=== PATIENT | male | born 1955 | race Caucasian/White ===

== ENCOUNTER 2023-07-19 14:20 | Outpatient (RCR) | payer MEDICARE, OTHER, SELFPAY | END 2023-08-06 08:31 | disposition home or self-care (01) | LOC: RPT 14:20 | PROVIDERS: ATTENDING PHYSICIAN Orthopaedic Surgery | DX: M25.562 Pain in left knee (principal) | CPT/HCPCS: 97110; 97140; 97530 ==

== ENCOUNTER → 2025-05-15 11:08 | Outpatient (REF) | payer MEDICARE, OTHER, SELFPAY | LOC: PAVMRI 11:08 | PROVIDERS: ATTENDING PHYSICIAN Orthopaedic Surgery; FAMILY PHYSICIAN Family Medicine | DX: M65.962 Unspecified synovitis and tenosynovitis, left lower leg (principal); M25.562 Pain in left knee | CPT/HCPCS: 73721 ==

== ENCOUNTER 2025-06-10 11:03 | Outpatient (RCR) | payer MEDICARE, OTHER, SELFPAY | END 2025-06-11 23:59 | disposition home or self-care (01) | LOC: RPT 11:03 | PROVIDERS: ATTENDING PHYSICIAN Orthopaedic Surgery; FAMILY PHYSICIAN Family Medicine | DX: S83.242D Other tear of medial meniscus, current injury, left knee, subsequent encounter (principal); Z73.6 Limitation of activities due to disability; M25.562 Pain in left knee; R26.2 Difficulty in walking, not elsewhere classified; M62.81 Muscle weakness (generalized); R26.89 Other abnormalities of gait and mobility; X58.XXXD Exposure to other specified factors, subsequent encounter | CPT/HCPCS: 97110; 97162; 97530 ==

== ENCOUNTER 2025-07-07 07:21 | Outpatient (RCR) | payer MEDICARE, OTHER, SELFPAY | END 2025-07-07 23:59 | disposition home or self-care (01) | LOC: RPT 07:21 | PROVIDERS: ATTENDING PHYSICIAN Orthopaedic Surgery; FAMILY PHYSICIAN Family Medicine | DX: S83.242D Other tear of medial meniscus, current injury, left knee, subsequent encounter (principal); Z73.6 Limitation of activities due to disability; M25.562 Pain in left knee; R26.2 Difficulty in walking, not elsewhere classified; M62.81 Muscle weakness (generalized); R26.89 Other abnormalities of gait and mobility; X58.XXXD Exposure to other specified factors, subsequent encounter | CPT/HCPCS: 97110; 97530 ==

== ENCOUNTER 2025-07-14 13:39 | Outpatient (RCR) | payer MEDICARE, OTHER, SELFPAY | END 2025-07-23 23:59 | disposition home or self-care (01) | LOC: RPT 13:39 | PROVIDERS: ATTENDING PHYSICIAN Orthopaedic Surgery; FAMILY PHYSICIAN Family Medicine | DX: S83.242D Other tear of medial meniscus, current injury, left knee, subsequent encounter (principal); Z73.6 Limitation of activities due to disability; M25.562 Pain in left knee; R26.2 Difficulty in walking, not elsewhere classified; M62.81 Muscle weakness (generalized); R26.89 Other abnormalities of gait and mobility; X58.XXXD Exposure to other specified factors, subsequent encounter | CPT/HCPCS: 97530 ==

== ENCOUNTER 2025-07-18 15:14 | Inpatient (IN) | payer MEDICARE, OTHER, SELFPAY ==
[2025-07-18 12:45] VITALS: BP 146/77
[2025-07-18 13:11] VITALS: BMI 29.2
[2025-07-18 13:43] LABS: Hematocrit 38.9 % (39.0-52.0); Hemoglobin 13.4 g/dL (13.0-18.0); Mean Corp Hgb Conc. 34.4 g/dL (33.0-37.0); Mean Corpuscular Volume 85.9 fL (80.0-94.0); Nucleated Red Blood Cells % 0 % (-); Platelet Count 205 10^3/uL (130-400); Red Cell Dist. Width 12.6 % (11.5-14.5)
[2025-07-18 13:52] LABS: ALT (SGPT) 23 U/L (0-50); AST (SGOT) 19 U/L (17-59); Albumin 4.4 g/dl (3.5-5.0); Alkaline Phosphatase 100 U/L (38-126); Blood Urea Nitrogen 18 mg/dl (9-20); Calcium 9.0 mg/dl (8.4-10.2); Carbon Dioxide 26 mmol/L (22-30); Chloride 101 mmol/L (98-107); Estimated Creatinine Clearance 86 ml/min; Glucose 88 mg/dl (70-99); Potassium 4.5 mmol/L (3.5-5.1); Sodium 132 mmol/L (135-145); Total Protein 7.4 g/dl (6.3-8.2); eGFR > 60.00
--- NOTE | 2025-07-18 14:09 | ED.GENMED ---
History of Present Illness
<Guillermina Enriquez PA-C - Last Filed: 07/21/25 06:26>
General
Chief Complaint: Skin Surface Trauma
Source: patient
Exam Limitations: none
Time Seen by Provider: 07/18/25 13:31
Nursing documentation reviewed up to this point in time: agreed with
History of Present Illness
History of Present Illness:
see MDM
Phy Exam
<Guillermina Enriquez PA-C - Last Filed: 07/21/25 06:26>
Physical Exam
Physical Exam:
see MDM
Course
<Guillermina Enriquez PA-C - Last Filed: 07/21/25 06:26>
Orders/Labs/Results
Orders:
Orders
07/18/25 Lunch
Cholesterol Lowering
At Your Request: Full Participation
Does patient need a safe tray?: No
Cholesterol Lowering: Sodium, 2 Gram
07/18/25 12:52
Wound Culture [Wound/Abscess/Other Culture] Urgent
MIRANDA Source: Finger
Specimen Description: Right
Date Specimen was Collected: 07/18/25
Time Specimen was Collected: 12:49
07/18/25 13:17
CBC/With Diff [Complete Blood Count/With Diff] Urgent
Comprehensive Metabolic Panel Urgent
07/18/25 13:45
Thumb/Finger 2 View Rt [CR Finger(s)/thumb Min 2 Vw Rt] Urgent
Comment:
Reason For Exam: infected thumb ? fb
07/18/25 13:46
Ampicillin/Sulbactam 3 G [Unasyn] 3 gm 0.9% Sodium Chloride 100 ml [Nss] 100 ml IV NOW
07/18/25 14:00
Ampicillin/Sulbactam 3 G [Unasyn] 3 gm 0.9% Sodium Chloride 100 ml [Nss] 100 ml IV NOW
07/18/25 14:56
Admit/Transfer Patient As Directed
Co-Sign Provider:
Level of Care: Inpatient admission
Assign to:: Medical/Surgical
Physician / Group: ricarday
Diagnosis: Paronychia with abscess and drainage of R Thumb Associated Lymphangitis
Reason for Hospitalization: Paronychia with abscess and drainage of R Thumb
Associated Lymphangitis with cellulitis.
Expected length of stay greater than two midnights?: Yes
ELOS- Estimated Length of Stay in days: 2
I certify the patient meets the requirements for IP care: Yes
07/18/25 14:59
Code Status As Directed
Resuscitation Status: Full Code
07/18/25 16:39
Acetaminophen [Tylenol] 650 mg PO Q6HPRN PRN mild pain
Bisacodyl [Dulcolax] 10 mg RECTAL [id number] PRN
Docusate W/Senna [Senokot-S] 1 tablet PO BIDPRN PRN
Ibuprofen [Motrin] 400 mg PO Q6HPRN PRN
Polyethylene Glycol Powder [Miralax] 17 grams PO DAILYPRN PRN
07/18/25 16:39
Activity As Directed
Activity Level: With Assistance
Pneumatic Compression Sleeves As Directed
Type: Knee high
Vital Signs As Directed
Frequency: Per unit guidelines
DX Deep Vein Thrombosis Video Routine
07/18/25 20:00
Ampicillin/Sulbactam 1.5 G [Unasyn] 1.5 gm 0.9% Sodium Chloride [Nss] 50 ml IV Q6H
07/19/25 05:14
Basic Metabolic Panel IN AM
Complete Blood Count/No Diff IN AM
07/19/25 08:00
Amlodipine [Norvasc] 5 mg PO DAILY
Bupropion(24Hr)Extended Releas [WELLBUTRIN XL (24 hour extended release)] 300 mg PO DAILY
Duloxetine Delayed Release [Cymbalta Delayed Release] 90 mg PO DAILY
Levothyroxine [Synthroid] 150 mcg PO DAILY
Rosuvastatin Calcium [Crestor] 20 mg PO DAILY
methylphenidate HCl [Concerta] 54 mg PO DAILY
Abnormal Lab Results
07/18/25
13:17
RBC 4.53 L 10^6/uL
(4.70-6.10)
Hct 38.9 L %
(39.0-52.0)
Absolute Lymphs (auto) 1.0 L 10^3/uL
(1.2-3.4)
Absolute Monos (auto) 0.7 H 10^3/uL
(0.1-0.6)
Lymphocytes % 14.7 L %
(20.5-51.1)
Monocytes % 9.5 H %
(1.7-9.3)
Sodium 132 L mmol/L
(135-145)
07/18/25 13:17
07/18/25 13:17
Vital Signs
Initial and Last Documented VS:
Initial Vital Signs
Temp Pulse Resp BP Pulse Ox
36.6 C 85 17 146/77 99
07/18/25 12:45 07/18/25 12:45 07/18/25 12:45 07/18/25 12:45 07/18/25 12:45
Last Documented Vital Signs
Temp Pulse Resp BP Pulse Ox
36.3 C 79 16 140/79 100
07/20/25 11:19 07/20/25 11:19 07/20/25 11:19 07/20/25 11:19 07/20/25 11:19
Stephanielt;Deirdre Smart DO - Last Filed: 07/18/25 14:18>
Orders/Labs/Results
Orders:
Orders
07/18/25 Lunch
Cholesterol Lowering
At Your Request: Full Participation
Does patient need a safe tray?: No
Cholesterol Lowering: Sodium, 2 Gram
07/18/25 12:52
Wound Culture [Wound/Abscess/Other Culture] Urgent
MIRANDA Source: Finger
Specimen Description: Right
Date Specimen was Collected: 07/18/25
Time Specimen was Collected: 12:49
07/18/25 13:17
CBC/With Diff [Complete Blood Count/With Diff] Urgent
Comprehensive Metabolic Panel Urgent
07/18/25 13:45
Thumb/Finger 2 View Rt [CR Finger(s)/thumb Min 2 Vw Rt] Urgent
Comment:
Reason For Exam: infected thumb ? fb
07/18/25 13:46
Ampicillin/Sulbactam 3 G [Unasyn] 3 gm 0.9% Sodium Chloride 100 ml [Nss] 100 ml IV NOW
07/18/25 14:00
Ampicillin/Sulbactam 3 G [Unasyn] 3 gm 0.9% Sodium Chloride 100 ml [Nss] 100 ml IV NOW
07/18/25 14:56
Admit/Transfer Patient As Directed
Co-Sign Provider:
Level of Care: Inpatient admission
Assign to:: Medical/Surgical
Physician / Group: valente
Diagnosis: Paronychia with abscess and drainage of R Thumb Associated Lymphangitis
Reason for Hospitalization: Paronychia with abscess and drainage of R Thumb
Associated Lymphangitis with cellulitis.
Expected length of stay greater than two midnights?: Yes
ELOS- Estimated Length of Stay in days: 2
I certify the patient meets the requirements for IP care: Yes
07/18/25 14:59
Code Status As Directed
Resuscitation Status: Full Code
07/18/25 16:39
Acetaminophen [Tylenol] 650 mg PO Q6HPRN PRN mild pain
Bisacodyl [Dulcolax] 10 mg RECTAL [id number] PRN
Docusate W/Senna [Senokot-S] 1 tablet PO BIDPRN PRN
Ibuprofen [Motrin] 400 mg PO Q6HPRN PRN
Polyethylene Glycol Powder [Miralax] 17 grams PO DAILYPRN PRN
07/18/25 16:39
Activity As Directed
Activity Level: With Assistance
Pneumatic Compression Sleeves As Directed
Type: Knee high
Vital Signs As Directed
Frequency: Per unit guidelines
DX Deep Vein Thrombosis Video Routine
07/18/25 20:00
Ampicillin/Sulbactam 1.5 G [Unasyn] 1.5 gm 0.9% Sodium Chloride [Nss] 50 ml IV Q6H
07/19/25 05:14
Basic Metabolic Panel IN AM
Complete Blood Count/No Diff IN AM
07/19/25 08:00
Amlodipine [Norvasc] 5 mg PO DAILY
Bupropion(24Hr)Extended Releas [WELLBUTRIN XL (24 hour extended release)] 300 mg PO DAILY
Duloxetine Delayed Release [Cymbalta Delayed Release] 90 mg PO DAILY
Levothyroxine [Synthroid] 150 mcg PO DAILY
Rosuvastatin Calcium [Crestor] 20 mg PO DAILY
methylphenidate HCl [Concerta] 54 mg PO DAILY
Abnormal Lab Results
07/18/25
13:17
RBC 4.53 L 10^6/uL
(4.70-6.10)
Hct 38.9 L %
(39.0-52.0)
Absolute Lymphs (auto) 1.0 L 10^3/uL
(1.2-3.4)
Absolute Monos (auto) 0.7 H 10^3/uL
(0.1-0.6)
Lymphocytes % 14.7 L %
(20.5-51.1)
Monocytes % 9.5 H %
(1.7-9.3)
Sodium 132 L mmol/L
(135-145)
07/18/25 13:17
07/18/25 13:17
Vital Signs
Initial and Last Documented VS:
Initial Vital Signs
Temp Pulse Resp BP Pulse Ox
36.6 C 85 17 146/77 99
07/18/25 12:45 07/18/25 12:45 07/18/25 12:45 07/18/25 12:45 07/18/25 12:45
Last Documented Vital Signs
Temp Pulse Resp BP Pulse Ox
36.3 C 79 16 140/79 100
07/20/25 11:19 07/20/25 11:19 07/20/25 11:19 07/20/25 11:19 07/20/25 11:19
Procedures
<Guillermina Enriquez PA-C - Last Filed: 07/21/25 06:26>
Incision/Drainage/Joint Aspiration
Right Thumb:
Anethesia: 1% Lidocaine and other (digital block)
Preparation: cleaned with alcohol wipe
Type of procedure: incise
Nature of site: other (paronychia)
Description of abscess: less than 3cm
How much fluid was obtained?: scant amount
Fluid description: purulent and bloody
Treatment: left open for drainage
<Guillermina Enriquez PA-C - Last Filed: 07/21/25 06:26>
MDM/Problems Addressed
Differential Diagnosis Includes:
see MDM
MDM/Problems Addressed:
Note:
CHIEF COMPLAINT(S)
Thumb discoloration and sensitivity with extension to the arm.
HISTORY OF PRESENT ILLNESS
The patient is a 70 y/o M R hand dominant who presented with a complaint of his thumb turning dark/discolored, increasing sensitivity, and swelling for the past 5 days. on 07/26 he had worsening pain/swelling and some redness, the conditions
prompted a visit to his family doctor, who prescribed a round of Amoxicillin. The prescription began yesterday, consisting of two doses taken yesterday and one today.yesterday there was some redness streaking up to the AC region. today now it
extends all the way up to the axilla.
The patient reports that the thumb started draining fluid after striking it against a crate this morning, which was painful. There was no reported fever. He does not have a history of diabetes.
no cp
PAST MEDICAL AND SURGICAL HISTORY
No past surgical history mentioned.
SOCIAL DETERMINANTS AFFECTING HEALTH
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
REVIEW OF SYSTEMS
- Dermatological: Thumb discoloration, swelling, and drainage.
- Systemic: No fevers or chills reported.
PHYSICAL EXAM
GENERAL: Alert , in no apparent distress
EYE: pupils equal and reactive
NECK: Supple
ENT: o/p clr, mmm.
CARDIAC: Regular rate and rhythm .
LUNGS: Clear breath sounds bilaterally, no acute respiratory distress, no wheezes/rales/rhonchi
ABDOMEN: Soft, without focal tenderness, no r/g, no cvat, normal bowel sounds
NEUROLOGICAL: Alert and oriented, no focal neuro deficits
SKIN: Warm and dry, fluctuance along the nail fold of the R thumb with some purplish/dusky appearance to jeff fingertip and under the nail
there is a soft fat pad of the fingertip
he has erythema streaking from the thumb up to the L axilla region
MUSCULOSKELETAL: thumb swelling distal phalanx; fat pad is soft
able to flex and extend
PSYCH: Normal and appropriate interaction.
- Nursing notes reviewed and vital signs reviewed.
PROBLEM LIST
Acute:
1. Lymphangitis with cellulitis.
2. Paronychia with drainage.
PLAN
- Initiate intravenous antibiotics for lymphangitis and cellulitis.
- Patient advised about the necessity of possible overnight hospital stay for treatment and monitoring.
DIFFERENTIAL DIAGNOSIS
The Differential Diagnosis includes, in no particular order and is not limited to:
1. Lymphangitis
2. Cellulitis
3. Paronychia
4. Infection secondary to trauma
5. Infective endocarditis
6. Septicemia
7. Deep vein thrombosis
8. Necrotizing fasciitis
9. Foreign body reaction
10. Erythema nodosum
70-year-old male [id number] says that he cut his right thumb he believes or he is not really sure, maybe he bit his fingernail and he started with some discoloration along the nailbed a few days ago. It started increasing and becoming more
swollen and tender. He went to his doctor and started on amoxicillin 2 days ago. He now has a streak of redness it has streak up past his AC region, he says it was in the AC region yesterday. He did not realize it is in the axilla today he has
not had any systemic symptoms. He is not a diabetic. On exam the patient has a fluctuant paronychia, it started draining in the center of it not along the nail fold, he has no obvious felon, but the digit is mildly swollen. He has erythematous
lymphatic spread of his arm to his axilla. Given the rapid spread of this I will admit him for IV antibiotics. I did drain the paronychia by lifting the fold off of the nail plate and it did express some purulence
<Guillermina Enriquez PA-C - Last Filed: 07/21/25 06:26>
*Pulse Oximetry
SaO2: 99
Oxygen Mode of Delivery: Room air
Patient hypoxic: no (100)
*Critical Care Note
Total Time (30-74mins, 75-104mins- exclusive of procedures): Not Applicable
ED Attending Note
<Guillermina Enriquez PA-C - Last Filed: 07/21/25 06:26>
-
Portions of this chart may have been created with voice recognition software.� Occasional wrong word or��sound alike� substitutions may have occurred due to the inherent limitations of voice recognition software.
<Deirdre Smart DO - Last Filed: 07/18/25 14:18>
ED Attending Note
Patient seen and examined by attending physician: Yes
I performed the substantive portion of visit, reviewed & personally made and approve the management plan that is documented in note by myself or MASHA.: Yes
I performed a history and physical exam of patient and discussed management with resident, I reviewed resident's note and agree with documented findings and plan of care.: Yes
ED Attending Note:
70-year-old male presents to the ER for further treatment of infection to his right hand now streaking up to his axilla. Patient was started on amoxicillin at urgent care and has taken 3 doses without any improvement, and in fact worsening
erythema. 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 He denies any prior history of retained foreign body to this digit. Vital signs reviewed, patient is awake, alert, appears in no acute distress, right thumb with
fluctuance and violaceous discoloration present along the proximal eponychial fold around 2 the lateral aspect of the digit, this area of purulence seems to extend across the interphalangeal joint, he has induration and erythema extending from his
thumb up to his axilla (extending beyond lines which had been drawn by urgent care), GCS is 15. I discussed with patient and present at bedside need for drainage of paronychia. Will also obtain x-ray to rule out foreign body. I discussed
with him benefit of admission for IV antibiotics given failure to improve on oral medications. He expressed understanding of plan and agrees.
Discharge Plan
Departure
Patient Disposition: Admit
Date of Disposition: 07/18/25
Time of Disposition: 14:17
Admit to: Med/Surg
Presentation/result/management discussed w/ accepting MD/DO: Hospitalist
Condition: Fair
Covid-19: Not Applicable
Discharge Problem:
Lymphangitis, Paronychia
Interventions
Interventions:
*Risk Screen - Suicide Last Done: 07/18/25 12:40
*General Assessment Last Done: 07/18/25 12:46
*Neglect/Abuse Screening Last Done: 07/18/25 12:46
*ED COVID-19 Vaccine History Last Done: 07/18/25 12:46
*ED Influenza Vaccine History Last Done: 07/18/25 12:46
[facility] Risk Assessment Tool Last Done: 07/18/25 13:05
*Nursing Disposition Last Done: 07/18/25 17:00
ED-Skin Assessment Last Done: 07/18/25 13:13
Discharge Date and Time
Discharge Date/Time: 07/18/25 17:09
[2025-07-18] MEDS: UNASYN IV ×2 (14:17→20:26)
[2025-07-18 14:20] VITALS: BP 138/83
--- NOTE | 2025-07-18 14:43 | HPS.HSE ---
Family Physician
-
Family Physician: Chelly Bejarano
Chief Complaint
-
R thumb infection
History of Present Illness
HPI
70M Non diabetic , R hand dominant seen at ER;
- eval for R thumb/hand infection now streaking up to his axilla
- reports R thumb dark/discolored, increasing sensitivity, and swelling for the past 5 days
- Patient was started on amoxicillin at urgent care and has taken 3 doses without any improvement, and in fact worsening erythema.
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
- denies any prior history of retained foreign body to this digit.
Medical History
Past Medical History
Past Medical History: Reports HTN, Hypercholesterolemia and Psychiatric (anxiety )
Past Surgical History: Reports None
Social History
Tobacco: Non-smoker
Family History
Family History: Not pertinent
Allergies / Home Medications
Allergies reflects when Allergies were last updated in [facility].
Home Medications with original date entered in [facility]
Allergy/Medication List:
Allergies
Allergy/AdvReac Type Severity Reaction Status Date / Time
No Known Allergies Allergy Verified 07/18/25 12:46
Home Medications
acetaminophen 325 mg tablet (Tylenol) 650 mg PO Q6HPRN PRN mild pain 07/18/25
amlodipine 5 mg-valsartan 160 mg tablet 1 tab PO DAILY Heart Disease/Condition 07/18/25
amoxicillin 875 mg-potassium clavulanate 125 mg tablet 1 tab PO BID Infection 07/18/25
bupropion HCl 300 mg 24 hr tablet, extended release (Wellbutrin XL) 300 mg PO DAILY Mental Health/Anxiety 07/18/25
duloxetine 30 mg capsule,delayed release 90 mg PO DAILY Neurological Condition 07/18/25
levothyroxine 150 mcg tablet (Synthroid) 150 mcg PO DAILY Thyroid 07/18/25
methylphenidate HCl 54 mg tablet,extended release 24 hr (Concerta) 54 mg PO DAILY Mental Health/Anxiety 07/18/25
rosuvastatin 20 mg tablet (Crestor) 20 mg PO DAILY High Cholesterol 07/18/25
Review of Systems
-
Constitutional: Reports No Symptoms
EENT: Reports No Symptoms
Respiratory: Reports No Symptoms
Cardiac: Reports No Symptoms
Abdomen/GI: Reports No Symptoms
: Reports No Symptoms
Musculoskeletal: Reports See HPI
Skin: Reports See HPI
Neurological: Reports No Symptoms
Endocrine: Reports No Symptoms
Hematologic/Lymphatic: Reports No Symptoms
Psych: Reports No Symptoms
Physical Exam
Vital Signs
Vital Signs
Temp Pulse Resp BP Pulse Ox
97.9 F 80 17 138/83 98
07/18/25 12:45 07/18/25 14:22 07/18/25 12:45 07/18/25 14:20 07/18/25 14:21
Physical Exam
General: Other (see below )
Laboratory Results
-
07/18/25 13:17
07/18/25 13:17
Laboratory Results
Total Bilirubin 0.8 mg/dl (0.2-1.3) 07/18/25 13:17
AST 19 U/L (17-59) 07/18/25 13:17
ALT 23 U/L (0-50) 07/18/25 13:17
Alkaline Phosphatase 100 U/L (38-126) 07/18/25 13:17
Data Reviewed
-
Lab Data: Labs Reviewed by me
Impression/Plan
-
Vital Signs
Temp Pulse Resp BP Pulse Ox
97.9 F 80 17 138/83 98
07/18/25 12:45 07/18/25 14:22 07/18/25 12:45 07/18/25 14:20 07/18/25 14:21
PE
Gen: Non toxic, NAD
HEENT: anicteric
Neck: supple
Lungs: CTA
Cor:RRR
TAKE AWAY ATTENDANT awake, alert,
R THUMB:
- fluctuance and purplish discoloration along the proximal eponychial fold around 2 distal digit
- area of purulence seems to extend across the interphalangeal joint
- induration and erythema extending from his thumb up to his axilla (extending beyond lines which had been drawn by urgent care),
Skin:erythema streaking from the thumb up to the L axilla region
Psych: Nl mod and affect
Abnormal Lab
07/18/25
13:17
RBC 4.53 L
Hct 38.9 L
Absolute Lymphs (auto) 1.0 L
Absolute Monos (auto) 0.7 H
Lymphocytes % 14.7 L
Monocytes % 9.5 H
Sodium 132 L
NO PRIOR hospitalist admission:
ASSESSMENT & PLAN
Paronychia with drainage of R Thumb
Associated Lymphangitis with cellulitis.
- I & D at ER - FU pus Cx
- c/w IV Unasyn
- Tylenol PRN
pHTN
- amlodipine 5 mg-valsartan 160 mg daily
Hypothyroid
- on JOURNEYMAN MACHINIST LT4
HLD
- on JOURNEYMAN MACHINIST rosuvastatin 20 mg daily
Anxiety/depression
- on JOURNEYMAN MACHINIST bupropion HCl 300 mg 24 hr daily and duloxetine 90 mg PO DAILY
DVT Px: SCD
Code: Full
OBS MS
--- NOTE | 2025-07-18 15:29 | CM ---
Chart reviewed. Spoke with patient at ED bedside
Lives in 2 [address] with
Independent with ADLs and ambulation
Currently attending outpt PT for left knee
no DME
PCP Chelly Bejarano
[facility]
no hx of VN nor SNF
DCP is to return home
CM will continue to follow up for any dcp needs
[2025-07-18 17:00] VITALS: BMI 28.8
[2025-07-18 17:05] VITALS: BP 138/80
[2025-07-18 19:00] VITALS: BP 134/82
[2025-07-18 20:00] VITALS: BMI 28.8
[2025-07-18 23:00] VITALS: BP 131/72
[2025-07-19] MEDS: UNASYN IV ×2 (01:46→07:32)
[2025-07-19 05:51] LABS: Hematocrit 37.1 % (39.0-52.0); Hemoglobin 13.1 g/dL (13.0-18.0); Mean Corp Hgb Conc. 35.3 g/dL (33.0-37.0); Mean Corpuscular Volume 88.1 fL (80.0-94.0); Platelet Count 172 10^3/uL (130-400); Red Cell Dist. Width 12.4 % (11.5-14.5)
[2025-07-19 06:05] LABS: Blood Urea Nitrogen 13 mg/dl (9-20); Calcium 8.8 mg/dl (8.4-10.2); Carbon Dioxide 25 mmol/L (22-30); Chloride 105 mmol/L (98-107); Estimated Creatinine Clearance 97 ml/min; Glucose 103 mg/dl (70-99); Potassium 4.4 mmol/L (3.5-5.1); Sodium 137 mmol/L (135-145); eGFR > 60.00
[2025-07-19 07:30] VITALS: BP 130/57
[2025-07-19] MEDS: CRESTOR 20 MG PO (07:30)
[2025-07-19] MEDS: SYNTHROID 150 MCG PO (07:30)
[2025-07-19] MEDS: CYMBALTA DELAYED RELEASE 90 MG PO (07:30)
[2025-07-19] MEDS: WELLBUTRIN XL (24 hour extended release) 300 MG PO (07:30)
[2025-07-19] MEDS: NORVASC 5 MG PO (07:31)
[2025-07-19] MEDS: DIOVAN 160 MG PO (07:40)
--- NOTE | 2025-07-19 10:45 | W.PN.HOSP.TC ---
Today's Communication/Plan
-
see plan
Assessment / Plan
Assessment / Plan
Gen: NAD, AAOx3.
Eyes: EOMI, PERRLA, no scleral icterus.
Neck: supple.
CV: RRR, +S1/S2, no m/r/g.
Resp: CTAB, no rales, wheezes, or rhonchi.
Abd: +BS, soft, NT, ND
Skin: No rashes. R thumg with C/D/I dressing, lymphangitis R arm
Neuro: CN 2-12 intact, non-focal.
Psych: Normal mood and affect.
07/18/25 12:52 Finger - Right Wound Culture - Preliminary
Staphylococcus aureus
07/18/25 12:52 Finger - Right Gram Stain - Preliminary
R thumb Xray: No acute fracture or dislocation. Visualized joint spaces are well-maintained. No overt radiographic evidence for osteomyelitis. Soft tissues are grossly unremarkable.
R thumb abscess and cellulitis due to paronychia:
-s/p I&D in ER
-follow WCx
-stop Unasyn, start Vanco
-c/s ID
Other problems:
Essential HTN: cont Diovan/Norvasc
HLD: cont statin
Hypothyroidism: cont synthroid
FULL/
Anticipated Discharge: 24 - 48 hours
Subjective/Interval History
-
Date of Service: July 19, 2025
Objective Data
-
Labs:
Laboratory Results
07/19/25
05:14
WBC 4.4 L
Hgb 13.1
Hct 37.1 L
Plt Count 172
Sodium 137
Potassium 4.4
Chloride 105
Carbon Dioxide 25
BUN 13
Creatinine 0.8
Glucose 103 H
Calcium 8.8
Vital Signs:
Vital Signs
Temp Pulse Resp BP Pulse Ox
97.6 F 72 17 130/57 99
07/19/25 07:30 07/19/25 07:40 07/19/25 07:30 07/19/25 07:40 07/19/25 07:30
--- NOTE | 2025-07-19 11:15 | PHA.VAN.IN ---
Assessment
- Assessment
Renal Function: Unknown baseline
AUC Dosing Plan
- Dosing Variables
Dosing Weight (kg): 96
Dosing CrCl (ml/min): 97
Vd coefficient (L/kg): 0.7
- Empiric Dosing
Initial / Loading Dose: Vancomycin 1750mg- administration pending
Maintenance Regimen: Vancomycin 1250mg IV Q12h to start 07/19 at 2000
Estimated AUC (mcg*h/mL): 466
Estimated Peak (mcg*h/mL): 29
Estimated Trough (mcg/ml): 12
Estimated Half Life (H): 8
- Monitoring
No levels ordered at this time: Consider levels in the next few days.
Pharmacokinetics Vancomycin I
- -
Patient Age: 70
Patient Sex: Male
Vancomycin Day #: 1
Indication: Skin And Soft Tissue
Requesting Provider: Dr. Mercado
Pertinent Antimicrobial Allergies:
Allergies
No Known Allergies Allergy (Verified 07/18/25 12:46)
Height / Weight:
Height 6 ft
Actual Weight 96.275 kg
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
- Vital Signs / Lab Results
Temp Pulse Resp BP Pulse Ox
97.6 F 72 17 130/57 99
07/19/25 07:30 07/19/25 07:40 07/19/25 07:30 07/19/25 07:40 07/19/25 07:30
Lab Results - Hematology
07/18/25 07/19/25
13:17 05:14
WBC 7.1 4.4 L
Lab Results - Chemistry
07/18/25 07/19/25
13:17 05:14
BUN 18 13
Creatinine 0.9 0.8
Estimated Creat Clear 86 97
Albumin 4.4
Microbiology Results
07/18/25 12:52 Wound Culture - Preliminary
Finger - Right Staphylococcus aureus
Gram Stain - Preliminary
[2025-07-19] MEDS: VANCOCIN 535 MG IV (11:42)
--- NOTE | 2025-07-19 14:41 | CON.ID ---
Consultation
-
Date/Time Consultation Requested: 07/19/2025 1051
Date/Time Consultation Performed: 07/19/2025 1440
Requesting Provider: Dr. Mercado
Performing Provider: Dr. Simon
Reason for Consultation: Right thumb infection
Chief Complaint / Past History
History of Present Illness
Almas Vaca is a 70-year-old man with a significant past medical history only for HTN and hypercholesterolemia being evaluated at the request of Dr. Mercado regarding right upper extremity cellulitis. History is obtained from chart review, along with
patient interview.
Patient reports that last week he began to have some swelling of his right thumb, with increasing tenderness of the area. On 07/16 he went to his PCPs office, and saw a PA there and was prescribed amoxicillin and started it the next day. He noted
increasing erythema spreading up his hand, and tracking along his forearm, onto his arm proper and at the advice of a friend who is a nurse he came to the emergency room for further evaluation. Here he was found to have a right thumb infection and
the area was lanced, and cultures revealed the presence of Staph aureus. Infectious Diseases is asked to comment on further antimicrobial therapy.
At this point in time he notes that the erythema that he had last week is now improved. He denies any fevers or chills. He denies any axillary adenopathy. There has been no travel history. He has pet corgi's (21 of them) but denies any recent
bites from them.
Past History
Additional Past Medical History:
HTN
HLD
Additional Past Surgical History:
Left ankle tendon graft
Cardiac ablation
Allergy History:
No Known Allergies Allergy (Verified 07/18/25 12:46)
Current Antibiotics:
Vancomycin (day #1)
Unasyn (DC'd)
Social History
Tobacco: Non-Smoker
Alcohol: Daily
Drug: None
Personal:
Living: With Family
Employment: Retired
Family History
Family History: Not Pertinent
Review of Systems
Vital Signs
Temp Pulse Resp BP Pulse Ox
97.6 F 72 17 130/57 99
07/19/25 07:30 07/19/25 07:40 07/19/25 07:30 07/19/25 07:40 07/19/25 07:30
Physical Exam
Physical Exam
Constitutional: No Acute Distress, Comfortable and Non-toxic
Eyes: No Conjunctival Hemorrhage and Sclera Anicteric
Oral: No Thrush and No Ulcers
Cardiovascular: Regular Rate and S1/S2; Negative S3/S4
Pulmonary: Clear; Negative Wheezes or Rales
Gastrointestinal: Soft, Non Tender and Non Distended
Extremities: Edema and Erythema (Minimal to none extending up the right arm.)
Wound: Other (right thumb with purulent drainage. See photo...)
Neurological: Awake and Alert
Psychological: Calm
Lab / Diagnostic Study Results
07/19/25 05:14
07/19/25 05:14
Abs Immat Gran (auto) 0.0 10^3/uL (0-0.05) 07/18/25 13:17
Absolute Neuts (auto) 5.1 10^3/uL (1.4-6.5) 07/18/25 13:17
Absolute Lymphs (auto) 1.0 10^3/uL (1.2-3.4) L 07/18/25 13:17
Absolute Monos (auto) 0.7 10^3/uL (0.1-0.6) H 07/18/25 13:17
Absolute Basos (auto) 0.0 10^3/uL (0-0.2) 07/18/25 13:17
Immature Gran % 0.3 % (0-0.5) 07/18/25 13:17
Neutrophils % 72.6 % (42.2-75.2) 07/18/25 13:17
Lymphocytes % 14.7 % (20.5-51.1) L 07/18/25 13:17
Monocytes % 9.5 % (1.7-9.3) H 07/18/25 13:17
Eosinophils % 2.5 % (0-6) 07/18/25 13:17
Basophils % 0.4 % (0-2) 07/18/25 13:17
Microbiology Results
Micro:
07/18/25 12:52 Wound Culture - Preliminary
Finger - Right Staphylococcus aureus
Gram Stain - Preliminary
07/18/25 18:01 MRSA Screen - Pending
Nose
Imaging:
07/18/2025 X-ray right hand: no acute fracture or dislocation. Visualized joint spaces well-maintained. No overt radiographic evidence for osteomyelitis. Soft tissues are grossly unremarkable. Please see full dictation for additional detail.
Photography:
Assessment / Plan
Right thumb paronychia 2*Staph aureus (MSSA)
Right hand cellulitis
Recommendations:
Discontinue further vancomycin.
Begin cefazolin.
Continue with local care to the area.
May be able to transition to oral therapy in the next 24 to 48 hours. If any worsening, would consider Ortho eval.
Care Review
Plan reviewed with: Physician (Hospitalist)
[2025-07-19 15:00] VITALS: BP 138/78
[2025-07-19] MEDS: ANCEF 10 IV (16:52)
[2025-07-19 23:00] VITALS: BP 155/81
[2025-07-20] MEDS: ANCEF 10 IV ×2 (00:52→08:18)
[2025-07-20] MEDS: SYNTHROID 150 MCG PO (05:44)
[2025-07-20] MEDS: CYMBALTA DELAYED RELEASE 90 MG PO (07:30)
[2025-07-20] MEDS: CRESTOR 20 MG PO (07:32)
[2025-07-20] MEDS: DIOVAN 160 MG PO (07:33)
[2025-07-20] MEDS: NORVASC 5 MG PO (07:35)
[2025-07-20] MEDS: WELLBUTRIN XL (24 hour extended release) 300 MG PO (07:35)
[2025-07-20 07:41] VITALS: BP 161/90
--- NOTE | 2025-07-20 09:29 | W.PN.HOSP.TC ---
Today's Communication/Plan
-
d/c
Assessment / Plan
Assessment / Plan
Gen: NAD, AAOx3.
Eyes: EOMI, PERRLA, no scleral icterus.
Neck: supple.
CV: remains RRR, +S1/S2, no m/r/g.
Resp: remains CTAB, no rales, wheezes, or rhonchi.
Skin: No rashes. R thumg with C/D/I dressing, lymphangitis R arm has resolved
Neuro: remains CN 2-12 intact, non-focal.
Psych: Normal mood and affect.
07/18/25 12:52 Finger - Right Wound Culture - Final
S aureus-Methicillin Sensitive
07/18/25 12:52 Finger - Right Gram Stain - Final
07/18/25 18:01 Nose MRSA Screen - Final
No Methicillin Resistant Staphylococcus aureus isolated.
R thumb Xray: No acute fracture or dislocation. Visualized joint spaces are well-maintained. No overt radiographic evidence for osteomyelitis. Soft tissues are grossly unremarkable.
R thumb abscess and cellulitis due to paronychia:
-s/p I&D in ER
-WCx with MSSA
-on Ancef, d/c on 10 days Keflex as per ID
-case discussed with Drs. Simon and Albina. Pt will see Dr. Montemayor in the office this week.
Other problems:
Essential HTN: cont Diovan/Norvasc
HLD: cont statin
Hypothyroidism: cont synthroid
FULL/SCDs
Medically cleared for d/c.
Total time spent on d/c = 31 min. This included today's physical exam, progress note, review of laboratory and diagnostic data, preparation of discharge documents and prescriptions, and discussions about the pt's hospital course and discharge plan
with the patient and other medical records technician involved in the patient's care.
Anticipated Discharge: Today
Subjective/Interval History
-
Date of Service: July 20, 2025
No new complaints.
Objective Data
-
Vital Signs:
Vital Signs
Temp Pulse Resp BP Pulse Ox
97.7 F 73 17 161/90 95
07/20/25 07:41 07/20/25 07:41 07/20/25 07:41 07/20/25 07:41 07/20/25 07:41
I&O
07/19/25 07/20/25 07/21/25
06:59 06:59 06:59
Intake Total 1440 / 1440
Balance 1440 / 1440
--- NOTE | 2025-07-20 10:03 | W.PN.ID1 ---
Date of Service
Date of Service: July 20, 2025
Today's Communication
Continue antibiotics; transition to oral Keflex.
Assessment / Plan
Right thumb paronychia 2*Staph aureus (MSSA)
Right hand cellulitis
Recommendations:
Transition to oral Keflex 500 mg p.o. QID x 10 days.
Continue with local care to the area.
Have spoken to Ortho. Patient will make appointment for later this week.
����������������������������������������������������������
Chief Complaint
-: Other (right thumb cellulitis)
Subjective / Review of Systems
Patient seen and examined. Reports mild ongoing right thumb discomfort. No fevers or chills.
Vital Signs / Physical Exam
Vital Signs
Vital Signs
Temp Pulse Resp BP Pulse Ox
97.7 F 73 17 161/90 95
07/20/25 07:41 07/20/25 07:41 07/20/25 07:41 07/20/25 07:41 07/20/25 07:41
Physical Exam
Constitutional: No Acute Distress, Comfortable and Non-toxic
Eyes: No Conjunctival Hemorrhage and Sclera Anicteric
Pulmonary: Non Labored
Musculoskeletal: Other (Right thumb with ongoing expressible purulence, ultimately changing to bloody drainage alone.)
Neurological: Awake and Alert
Psychological: Calm
Objective Data
Lab Data
Lab Results
07/19/25 05:14
07/19/25 05:14
Estimated Creat Clear 97 ml/min 07/19/25 05:14
Total Bilirubin 0.8 mg/dl (0.2-1.3) 07/18/25 13:17
AST 19 U/L (17-59) 07/18/25 13:17
ALT 23 U/L (0-50) 07/18/25 13:17
Alkaline Phosphatase 100 U/L (38-126) 07/18/25 13:17
Most recent labs reviewed.
Micro Results:
07/18/25 12:52 Wound Culture - Final
Finger - Right S aureus-Methicillin Sensitive
Gram Stain - Final
07/18/25 18:01 MRSA Screen - Final
Nose No Methicillin Resistant Staphylococcus aureus isolated.
Imaging:
07/18/2025 X-ray right hand: no acute fracture or dislocation. Visualized joint spaces well-maintained. No overt radiographic evidence for osteomyelitis. Soft tissues are grossly unremarkable. Please see full dictation for additional detail.
Photography:
Care Review
Plan reviewed with: Physician (Hospitalist, Orthopedics)
[2025-07-20 11:19] VITALS: BP 140/79
--- NOTE | 2025-07-20 11:45 | CM ---
SUBHA met with Almas at bedside prior to discharge today. IMM reviewed, patient declined a copy, as he already had his original copy. His was going to pick him up, however when I was in the room, she called and let him know that their dogs were
fighting and she was trying to separate them and was injured and bleeding at home. Almas decided to take an Uber home and is going to the Discharge Lounge until his Uber arrives.
Plan: Discharge to home with outpatient follow up with Dr. Montemayor later this week. No other needs identified.
--- NOTE | 2025-07-20 14:58 | W.DCSUMMARY ---
Discharge Summary
Discharge Data
Date of Admission: 07/18/25
Date of Discharge: 07/20/25
-
Pending Results: No
Hospital Course
Primary diagnoses:
R thumb paronychia with cellulitis and lymphangitis
Secondary diagnoses:
Essential hypertension
Hyperlipidemia
Hypothyroidism
Consultants:
Infectious disease
Imaging:
R thumb Xray: No acute fracture or dislocation. Visualized joint spaces are well-maintained. No overt radiographic evidence for osteomyelitis. Soft tissues are grossly unremarkable.
Hospital course: 70-year-old male who presented with a chief complaint of right thumb infection as outlined in the H&P done on admission. Imaging above. The patient underwent I&D in the ER. He was initially on Unasyn and then transition to
vancomycin. Wound culture grew MSSA. He was transition to IV Ancef and then discharged on 10 days Keflex as per ID.the patient will see Dr. Montemayor (orthopedics) in the office this week.
Discharge Plan
-
Patient Disposition: Home (Routine Discharge)
Discharge Diagnosis/Procedures: R thumb paronychia with cellulitis and lymphangitis
Condition: Good
Diet: Low Cholesterol
Activity: As tolerated
Driving Restrictions: As prior to admission
Bathing Restrictions: None
Referrals:
Jefry Montemayor MD [Active, Orthopedics] - in one to two days
Referral Note: R thumb paronychia
Chelly Bejarano DO [Family Provider, Family Practice] - in less than 1 week
Prescriptions:
New
cephalexin 500 mg capsule
500 mg PO Q6H 10 Days Qty: 40 0RF
Continued
acetaminophen [Tylenol] 325 mg Tablet
650 mg PO Q6HPRN PRN (Reason: mild pain)
methylphenidate HCl [Concerta] 54 mg Tablet Extended Release 24hr
54 mg PO DAILY
levothyroxine [Synthroid] 150 mcg Tablet
150 mcg PO DAILY
rosuvastatin [Crestor] 20 mg Tablet
20 mg PO DAILY
bupropion HCl [Wellbutrin XL] 300 mg Tablet Extended Release 24 Hr
300 mg PO DAILY
duloxetine 30 mg Capsule,Delayed Release(Dr/Ec)
90 mg PO DAILY
amlodipine-valsartan 5-160 mg Tablet
1 tab PO DAILY
Discontinued
amoxicillin-pot clavulanate 875-125 mg tablet
1 tab PO BID
Rx Instructions:
for 7 day starting 07/17/25
Discharge Orders:
Discharge Patient (As Directed); Ordered 07/20/25
Ordered By: Kyler Mercado
Discharge Date and Time
Discharge Date/Time: 07/20/25 12:28
Print Language: VINCENTIAN
== END 2025-07-20 12:28 | disposition home or self-care (01) | DRG 603 ==
LOC: 3 WEST ACU 15:14
PROVIDERS: ADMITTING PHYSICIAN Internal Medicine; ATTENDING PHYSICIAN Internal Medicine; CONSULT PHYSICIAN Internal Medicine Infectious Disease; EMERGENCY PHYSICIAN Emergency Medicine; FAMILY PHYSICIAN Family Medicine
DX: L03.011 Cellulitis of right finger (principal); I10 Essential (primary) hypertension; E78.00 Pure hypercholesterolemia, unspecified; E03.9 Hypothyroidism, unspecified; B95.61 Methicillin susceptible Staphylococcus aureus infection as the cause of diseases classified elsewhere; F41.9 Anxiety disorder, unspecified; F32.A Depression, unspecified; H91.90 Unspecified hearing loss, unspecified ear; Z79.890 Hormone replacement therapy; Z79.899 Other long term (current) drug therapy
CPT/HCPCS: 73140; 80048; 80053; 85025; 85027; 87070; 87147; 87186; 87205; 96365; 99285

== ENCOUNTER → 2025-08-10 12:18 | Outpatient (REF) | payer MEDICARE, OTHER, SELFPAY ==
[2025-08-10 14:06] LABS: Hematocrit 36.7 % (39.0-52.0); Hemoglobin 13.0 g/dL (13.0-18.0); Mean Corp Hgb Conc. 35.4 g/dL (33.0-37.0); Mean Corpuscular Volume 87.8 fL (80.0-94.0); Nucleated Red Blood Cells % 0 % (-); Platelet Count 209 10^3/uL (130-400); Red Cell Dist. Width 12.5 % (11.5-14.5)
[2025-08-10 14:32] LABS: ALT (SGPT) 25 U/L (0-50); AST (SGOT) 23 U/L (17-59); Albumin 4.1 g/dl (3.5-5.0); Alkaline Phosphatase 94 U/L (38-126); Blood Urea Nitrogen 20 mg/dl (9-20); C-Reactive Protein 30.90 mg/L (0.0-10.00); Calcium 9.0 mg/dl (8.4-10.2); Carbon Dioxide 22 mmol/L (22-30); Chloride 105 mmol/L (98-107); Glucose 103 mg/dl (70-99); Potassium 4.3 mmol/L (3.5-5.1); Sodium 134 mmol/L (135-145); Total Protein 6.9 g/dl (6.3-8.2); eGFR > 60.00
== END ==
LOC: RAD 12:18
PROVIDERS: ATTENDING PHYSICIAN Nurse Practitioner Family
DX: L03.90 Cellulitis, unspecified (principal); W54.0XXA Bitten by dog, initial encounter
CPT/HCPCS: 36415; 73110; 73130; 80053; 85025; 85652; 86140